=== PATIENT | female | born 1995 | race Caucasian/White ===

== ENCOUNTER 2016-09-27 10:26 | Emergency (ER) | payer BC ==
[~2016-09-27] VITALS: Ht 162.6 cm; Wt 82.0 kg
[~2016-09-27 10:26] MED LIST: BCPILLS PO; SERT1TAB88 PO
[2016-09-27 10:34] VITALS: TEMP 37; Ht 162.6 cm; Wt 82.0 kg
[2016-09-27] MEDS ORDERED: SODIUM CHLORIDE 0.9% 1000ML 500 ML IV STA (10:46)
[2016-09-27] MEDS ORDERED: KETOROLAC TROMETHAMINE 30 MG/ML VIAL IV STA (10:46)
[2016-09-27] MEDS ORDERED: ONDANSETRON INJ 2 MG/ML 2 ML VIAL IV STA (10:46)
[2016-09-27 11:10] LABS: BASO % 0.3 %; BASO ABS # 0.02 K/uL (0-0.2); COMPLETE YES; HEMATOCRIT 42.1 % (37-47); IG% 0.1 %; LYMPH % 27.6 %; LYMPH ABS # 2.06 K/uL (1.2-3.4); MEAN CELL VOLUME 86.3 fL (80-100); MEAN CORPUSCULAR HEMOGLOBIN 28.7 pg (25-34); MEAN CORPUSCULAR HGB CONC 33.3 g/dl (32-36); MEAN PLATELET VOLUME 10.3 fL (7.4-10.4); MONO % 9.9 %; NEUT % 58.1 %; PLATELET COUNT 229 K/uL (130-400); RED BLOOD COUNT 4.88 M/uL (4.2-5.4); WHITE BLOOD COUNT 7.46 K/uL (4.8-10.8)
--- NOTE | 2016-09-27 11:16 | EMERGENCY ROOM VISIT NOTE ---
History Report prepared by Jerry: Leyda Vázquez Under the Supervision of: Dr. Gregor Tobias M.D. First contact with patient: 10:41 Chief Complaint: ABDOMINAL PAIN Stated Complaint: PAIN-ABDOMINAL Nursing Triage Summary: pt reports low abdominal pain since sun. denies urinary sx " I think its caused by my IUD" History of Present Illness The patient is a 21 year old female who presents to the Emergency Room with complaints of waxing and waning lower abdominal pain for the past two days. She states that when her pain started, she lay in bed all day and cried because certain movements exacerbated her pain. Her pain radiates into her back, and she is also experiencing nausea. The patient describes her pain as sharp and rates it as a 10/10 at its most severe. Yesterday she called her PCP and scheduled an appointment, but they are unable to see her until October 10. Her pain has continued yesterday and today. She went to work today and was still having pain so she called her PCP's office on her break. She was told to come to the ED for further evaluation. The patient denies vomiting, urinary symptoms , abnormal vaginal discharge. She reports somewhat chronic diarrhea, but denies any changes to her stools. She also denies any personal history of ovarian cysts. She has never had pain like this before. The patient has an IUD that was placed in February 2016. She states that she had an issue with it in May and was evaluated. Her doctor told her that everything was normal and the IUD was correctly placed. The patient has had no symptoms with her IUD since then. She has not taken anything for her pain today. She states that yesterday she had a migraine and took Excedrin, which alleviated her migraine. Source of History: patient Onset: 2 days ago Position: abdomen (lower) Symptom Intensity: 10/10 Quality: sharp Timing: waxes/wanes Modifying Factors (Worsening): movement Associated Symptoms: + nausea, + back pain, No vomiting, No urinary symptoms Note: Pt denies abnormal vaginal discharge. Review of Systems See HPI for pertinent positives & negatives. A total of 10 systems reviewed and were otherwise negative. Past Medical & Surgical Medical Problems: (1) No significant past medical history Surgical Problems: (1) No history of previous surgery Family History FH: cancer FH: diabetes mellitus FH: gallbladder disease FH: heart disease FH: hypertension FH: kidney disease Social History Smoking Status: Current Every Day Smoker Alcohol Use: none Marital Status: single Housing Status: lives with family Occupation Status: unemployed, student Current/Historical Medications Scheduled Sertraline HCl (Sertraline HCl), 25 MG PO QPM Allergies Coded Allergies: Penicillins (Unverified Allergy, Unknown, RASH, 09/27/16) Physical Exam Vital Signs Date Time Temp Pulse Resp B/P (MAP) Pulse Ox O2 Delivery O2 Flow Rate FiO2 09/27/16 13:00 72 18 120/72 100 Room Air 09/27/16 12:04 76 16 116/77 100 Room Air 09/27/16 10:34 37.0 111 20 127/84 95 Room Air Physical Exam GENERAL: Patient is in no acute distress. HEENT: No acute trauma, normocephalic atraumatic, mucous membranes moist, no nasal congestion, no scleral icterus. NECK: No stridor, no adenopathy, no meningismus, trachea is midline. LUNGS: Clear to auscultation bilaterally, no wheeze, no rhonchi, breath sounds equal. HEART: Without murmurs gallops or rubs, regular rate and rhythm. ABDOMEN: Soft, tender primarily over the mid-pelvis/bladder, bowel sounds positive, no hernias, no peritonitis. EXTREMITIES: No cyanosis or edema, full range of motion of all the joints without pain or difficulty, no signs for acute trauma. NEUROLOGIC: Oriented x 3, no acute motor or sensory deficits, no focal weakness. SKIN: No rash, no jaundice, no diaphoresis. Medical Decision & Procedures ER Provider Diagnostic Interpretation: Radiology results as stated below per my review and radiologist interpretation: PELVIC ULTRASOUND CLINICAL HISTORY: ABDOMINAL PAIN--HAS IUD COMPARISON STUDY: None. TECHNIQUE: Transabdominal and transvaginal sonography of the pelvis was performed. FINDINGS: The uterus measures 5.8 x 3.4 x 4.5 cm. Endometrium measures 4 mm in thickness. An intrauterine device is appropriately positioned. The right ovary measures 3.6 x 2.1 x 2.5 cm and the left measures 2.8 x 1.6 x 1.7 cm. Color flow is identified within each ovary. Trace free fluid is likely physiologic. IMPRESSION: 1. Appropriately positioned IUD by sonography. 2. Unremarkable pelvic ultrasound. Electronically signed by: Willy Townsend M.D. 09/27/2016 11:58 AM Dictated Date/Time: 09/27/2016 11:54 AM Laboratory Results 09/27/16 11:00 Red Blood Count 4.88, Mean Corpuscular Volume 86.3, Mean Corpuscular Hemoglobin 28.7, Mean Corpuscular Hemoglobin Concent 33.3, Mean Platelet Volume 10.3, Neutrophils (%) (Auto) 58.1, Lymphocytes (%) (Auto) 27.6, Monocytes (%) (Auto) 9.9, Eosinophils (%) (Auto) 4.0, Basophils (%) (Auto) 0.3, Neutrophils # (Auto) 4.33, Lymphocytes # (Auto) 2.06, Monocytes # (Auto) 0.74, Eosinophils # (Auto) 0.30, Basophils # (Auto) 0.02 09/27/16 11:00 Test 09/27/16 00:00 09/27/16 11:00 09/27/16 11:52 Urine Color YELLOW Urine Appearance CLOUDY (CLEAR) Urine pH 5.5 (4.5-7.5) Urine Specific [place] 1.025 (1.000-1.030) Urine Protein NEG (NEG) Urine Glucose (UA) NEG (NEG) Urine Ketones NEG (NEG) Urine Occult Blood 3+ (NEG) Urine Nitrite NEG (NEG) Urine Bilirubin NEG (NEG) Urine Urobilinogen NEG (NEG) Urine Leukocyte Esterase TRACE (NEG) Urine WBC (Auto) 1-5 /hpf (0-5) Urine RBC (Auto) 0-4 /hpf (0-4) Urine Hyaline Casts (Auto) 1-5 /lpf (0-5) Urine Epithelial Cells (Auto) >30 /lpf (0-5) Urine Bacteria (Auto) 1+ (NEG) Urine Yeast (Auto) (NONE PRSENT) White Blood Count 7.46 K/uL (4.8-10.8) Red Blood Count 4.88 M/uL (4.2-5.4) Hemoglobin 14.0 g/dL (12.0-16.0) Hematocrit 42.1 % (37-47) Mean Corpuscular Volume 86.3 fL (80-100) Mean Corpuscular Hemoglobin 28.7 pg (25-34) Mean Corpuscular Hemoglobin Concent 33.3 g/dl (32-36) Platelet Count 229 K/uL (130-400) Mean Platelet Volume 10.3 fL (7.4-10.4) Neutrophils (%) (Auto) 58.1 % Lymphocytes (%) (Auto) 27.6 % Monocytes (%) (Auto) 9.9 % Eosinophils (%) (Auto) 4.0 % Basophils (%) (Auto) 0.3 % Neutrophils # (Auto) 4.33 K/uL (1.4-6.5) Lymphocytes # (Auto) 2.06 K/uL (1.2-3.4) Monocytes # (Auto) 0.74 K/uL (0.11-0.59) Eosinophils # (Auto) 0.30 K/uL (0-0.5) Basophils # (Auto) 0.02 K/uL (0-0.2) RDW Standard Deviation 42.7 fL (36.4-46.3) RDW Coefficient of Variation 13.5 % (11.5-14.5) Immature Granulocyte % (Auto) 0.1 % Immature Granulocyte # (Auto) 0.01 K/uL (0.00-0.02) Anion Gap 7.0 mmol/L (3-11) Est Creatinine Clear Calc Drug Dose 118.2 ml/min Estimated GFR () 126.0 Estimated GFR (Non- 108.7 BUN/Creatinine Ratio 15.5 (10-20) Calcium Level 9.2 mg/dl (8.5-10.1) Total Bilirubin 0.2 mg/dl (0.2-1) Aspartate Amino Transf (AST/SGOT) 20 U/L (15-37) Alanine Aminotransferase (ALT/SGPT) 26 U/L (12-78) Alkaline Phosphatase 65 U/L (45-117) Total Protein 7.6 gm/dl (6.4-8.2) Albumin 3.7 gm/dl (3.4-5.0) Globulin 3.9 gm/dl (2.5-4.0) Albumin/Globulin Ratio 0.9 (0.9-2) Lipase 107 U/L (73-393) Human Chorionic Gonadotropin, Qual NEG (NEG) Laboratory results reviewed by me. Medications Administered Medications (Trade) Dose Ordered Sig/Luciano Route Start Time Stop Time Status Last Admin Dose Admin Sodium Chloride 500 ml @ 999 mls/hr Q31M STAT IV 09/27/16 10:46 09/27/16 11:16 DC 09/27/16 11:05 999 MLS/HR Ondansetron HCl (Zofran Inj) 4 mg NOW STAT IV 09/27/16 10:46 09/27/16 10:49 DC 09/27/16 11:05 4 MG Ketorolac Tromethamine (Toradol Inj) 30 mg NOW STAT IV 09/27/16 10:46 09/27/16 10:49 DC 09/27/16 11:05 30 MG ED Course 1041: The patient was evaluated in room C7. A complete history and physical exam was performed. 1046: Toradol 30 mg IV, Zofran 4 mg IV, NSS 500 ml @ 999 mls/hr IV 1301: I reassessed the patient at this time. She is feeling better and resting comfortably. I discussed the results and treatment plan with the patient. I answered all pertaining questions that she had. She expressed understanding and verbalized agreement. The patient will be discharged home. Medical Decision Differential diagnoses includes misplaced IUD, uterine cramps, ovarian cyst, UTI , , appendicitis, musculoskeletal pain, intestinal colic, hernia. There is no leukocytosis or concerning anemia. No significant electrolyte abnormality, kidney failure or hepatitis. The patient does not have evidence for pancreatitis. Urinalysis does not show infection, contamination was seen. Pelvic ultrasound did not show any ovarian cyst. The IUD was in proper position. On exam, there was no fever, there was no peritonitis, she was not toxic. testing is negative. The patient received IV saline, IV Zofran and IV Toradol, she feels improved. The cause for the pain is unclear. She may be having uterine cramping secondary to her IUD. I advised her to speak with her doctor about having it removed. Right now, I do think she can be discharged. [id number] pain control was suggested. She can return for fever or uncontrolled symptoms. Impression Primary Impression: Pelvic pain Scribe Attestation The scribe's documentation has been prepared under my direction and personally reviewed by me in its entirety. I confirm that the note above accurately reflects all work, treatment, procedures, and medical decision making performed by me. Departure Information Dispostion Home / Self-Care Referrals Briseida Balderas DO (PCP) Forms HOME CARE DOCUMENTATION FORM, IMPORTANT VISIT INFORMATION Patient Instructions My [facility] Additional Instructions motrin/tylenol for pain may use exedrine for pain instead heat to the pelvis with a heating pad may help see your doctor about the IUD and having it maintained or removed return if worsening or have fever testing today was all ok
[2016-09-27 11:23] LABS: URINE APPEARANCE CLOUDY (CLEAR); URINE BILIRUBIN NEG (NEG); URINE COLOR YELLOW; URINE EPITHELIAL CELL AUTO >30 /lpf (0-5); URINE NITRITE NEG (NEG); URINE PH 5.5 (4.5-7.5); URINE SPECIFIC GRAVITY 1.025 (1.000-1.030); UROBILINOGEN NEG (NEG); ZZUR CULT IF INDIC CLEAN CATCH YES
[2016-09-27 11:27] LABS: BUN/CREATININE RATIO 15.5 (10-20); CALCIUM 9.2 mg/dl (8.5-10.1); CREATININE 0.78 mg/dl (0.60-1.20); POTASSIUM 4.1 mmol/L (3.5-5.1)
[2016-09-27 11:30] LABS: ALB/GLOB RATIO 0.9 (0.9-2)
[2016-09-27 11:30] LABS: MANUAL MICROSCOPIC REQUIRED? NO; REVIEW REQ? YES
--- NOTE | 2016-09-27 11:59 | DIAGNOSTIC IMAGING REPORT ---
PELVIC ULTRASOUND CLINICAL HISTORY: ABDOMINAL PAIN--HAS IUD COMPARISON STUDY: None. TECHNIQUE: Transabdominal and transvaginal sonography of the pelvis was performed. FINDINGS: The uterus measures 5.8 x 3.4 x 4.5 cm. Endometrium measures 4 mm in thickness. An intrauterine device is appropriately positioned. The right ovary measures 3.6 x 2.1 x 2.5 cm and the left measures 2.8 x 1.6 x 1.7 cm. Color flow is identified within each ovary. Trace free fluid is likely physiologic. IMPRESSION: 1. Appropriately positioned IUD by sonography. 2. Unremarkable pelvic ultrasound. Electronically signed by: Willy Townsend M.D. 09/27/2016 11:58 AM Dictated Date/Time: 09/27/2016 11:54 AM
[2016-09-27 12:44] LABS: PREG INTERNAL NEGATIVE QC NEG CLEAR BACKGROUND; PREG INTERNAL POSITIVE QC POS CONTROL LINE
[2016-09-27 13:00] VITALS: BP 120/72; PULSE 72; O2SAT 100
== END 2016-09-27 13:23 | disposition home or self-care (01) ==
LOC: C.EDB 10:27 → C.EDC 13:23
DX: R10.2 Pelvic and perineal pain (principal); F17.200 Nicotine dependence, unspecified, uncomplicated; Z97.5 Presence of (intrauterine) contraceptive device; Z83.3 Family history of diabetes mellitus; Z82.49 Family history of ischemic heart disease and other diseases of the circulatory system